=== PATIENT | female | born 1990 | race Two or more races ===

== ENCOUNTER 2018-10-31 21:38 | Emergency (ER) | payer SELFPAY ==
[~2018-10-31] VITALS: Ht 162.6 cm; Wt 81.6 kg
[2018-10-31 21:54] VITALS: BP 108/65
[2018-10-31] MEDS ORDERED: KETOROLAC 30 MG/ML VIAL. IM ONE (22:30)
[2018-10-31] MEDS ORDERED: NAPR-695 PO (22:44)
--- NOTE | 2018-10-31 22:44 | PHYS DOC ---
Past Medical History Past Medical History: No Pertinent History Past Surgical History: No Surgical History Alcohol Use: None Drug Use: None Adult General Chief Complaint Chief Complaint: FOOT INJURY PAIN HPI HPI Patient is a 27 year old female who arrives to the emergency department via POV with her and presents with a foot injury. The patient states she was holding some bags and tripped, due to her dog, and fell backward. As she was falling her ankle rolled underneath her. She immediately had sharp, lateral, right ankle pain with swelling. She describes the pain as hot, sharp and as 7 out of 10. She cannot bear weight or move the foot. She describes some radiating pain up her leg. She denies any prior injuries to the area. She took a Tylenol shortly before coming in which provided minimal benefit. She denies any foot pain, knee pain, or hip pain in the ipsilateral leg. She has no other complaints at this time. Review of Systems Review of Systems Constitutional: Denies fever or chills Eyes: Denies redness or eye pain HENT: Denies nasal congestion or sore throat Respiratory: Denies cough or shortness of breath Cardiovascular: Denies chest pain or palpitations GI: Denies abdominal pain, nausea, or vomiting : Denies dysuria or hematuria Musculoskeletal: Right ankle pain and swelling. Integument: Denies rash or skin lesions Neurologic: Denies headache, focal weakness or sensory changes Complete systems were reviewed and found to be within normal limits, except as documented in this note. Current Medications Current Medications Current Medications Medications (Trade) Dose Ordered Sig/[facility] Start Time Stop Time Status Last Admin Dose Admin Ketorolac Tromethamine (Toradol 30mg Vial) 30 mg 1X ONCE 10/31/18 22:30 10/31/18 22:31 DC 10/31/18 22:36 30 MG Allergies Allergies Allergies Coded Allergies Type Severity Reaction Last Updated Verified No Known Drug Allergies 10/31/18 No Physical Exam Physical Exam Constitutional: Well developed, well nourished, no acute distress, non-toxic appearance Eyes: PERRL, EOMI, conjunctiva normal, no discharge Cardiovascular: Heart rate normal, regular rhythm Skin: Warm, dry, no erythema, no rash Back: No tenderness, no CVA tenderness Extremities: Tenderness and significant swelling over lateral malleolus of right ankle. No fibular head tenderness. Neurologic: Alert and oriented X 3, normal motor function, normal sensory function, no focal deficits noted Psychologic: Affect normal, judgement normal, mood normal Current Patient Data Vital Signs Vital Signs Date Time Temp Pulse Resp B/P (MAP) Pulse Ox O2 Delivery O2 Flow Rate FiO2 10/31/18 21:54 98.2 84 16 108/65 (79) 98 Room Air 98.2 EKG EKG [] Radiology/Procedures Radiology/Procedures PROCEDURE: ANKLE RIGHT 3V Right ankle 3 views. HISTORY: Pain 3 views were taken of the right ankle. There is soft tissue swelling. There is no fracture or acute osseous abnormality. IMPRESSION: 1. Soft tissue swelling. 2. No fracture noted in the right ankle. Electronically signed by: Mackenzie Presley MD (10/31/2018 11:03 PM) [facility] DICTATED and SIGNED BY: MACKENZIE PRESLEY MD DATE: 10/31/18 1083[] Course & Med Decision Making Course & Med Decision Making Patient is a 27-year-old female who presents with right ankle pain after a fall. The ankle is markedly tender and swollen on exam over the lateral malleolus. X- ray of the right ankle showed no acute fractures. Patient counseled on RICE therapy and given a set of crutches. Patient also given Toradol 30mg IM for pain control in the ED. She was prescribed Naproxen 375mg to take PRN at home. Patient stable for discharge with outpatient follow-up with PCP. Discussed fi ndings and plan with patient and family, who acknowledge understanding and agreement. Dragon Disclaimer Dragon Disclaimer This electronic medical record was generated, in whole or in part, using a voice recognition dictation system. Departure Departure Impression: Primary Impression: Ankle sprain Disposition: 01 HOME, SELF-CARE Condition: STABLE Referrals: NO PCP (PCP) BARBRA ROME MD Patient Instructions: Ankle Sprain, [id number], Crutch Use, [id number] Scripts Naproxen (NAPROXEN) 375 Mg Tablet 1 TAB PO TID PRN for PAIN, #20 TAB Prov: MAKAYLA VILCHIS DO 10/31/18 Problem Qualifiers Primary Impression: Ankle sprain Encounter type: initial encounter Involved ligament of ankle: unspecified ligament Laterality: right Qualified Codes: S93.401A - Sprain of unspecified ligament of right ankle, initial encounter MAKAYLA VILCHIS DO Oct 31, 2018 22:44
--- NOTE | 2018-10-31 23:06 | RAD ---
Right ankle 3 views. HISTORY: Pain 3 views were taken of the right ankle. There is soft tissue swelling. There is no fracture or acute osseous abnormality. IMPRESSION: 1. Soft tissue swelling. 2. No fracture noted in the right ankle. Electronically signed by: Gurdeep Puentes MD (10/31/2018 11:03 PM) [facility]
== END 2018-10-31 22:55 | disposition home or self-care (01) ==
LOC: ER 21:38
DX: S93.492A Sprain of other ligament of left ankle, initial encounter (principal); W01.0XXA Fall on same level from slipping, tripping and stumbling without subsequent striking against object, initial encounter; Y93.89 Activity, other specified; Y92.89 Other specified places as the place of occurrence of the external cause; Y99.8 Other external cause status
CPT/HCPCS: 73610; 96372; 99284; J1885; L4350